=== PATIENT | male | born 1970 | race Caucasian/White ===

== ENCOUNTER 2023-11-14 11:31 | Emergency (ER) | payer OTHER ==
[2023-11-14] MEDS: Penicillin G Benzathine 1,200,000 Units/2 ML Syringe IM ONE (13:00)
[2023-11-14] MEDS: Take Home: Amoxicillin 500 MG Cap, 2 Cap Pack PO ONE (13:05)
== END 2023-11-14 13:10 | disposition home or self-care (01) ==
LOC: CC.ED 11:31
DX: K08.89 Other specified disorders of teeth and supporting structures (principal); K02.9 Dental caries, unspecified
CPT/HCPCS: 96372; 99283; A9270-GY; J0561